=== PATIENT | female | born 1955 | race American Indian/Alaskan Native ===

== ENCOUNTER 2019-06-02 00:01 | Emergency (ER) | payer OTHER, MEDICARE ==
--- NOTE | 2019-06-02 01:04 | Emergency Department Report ---
ED ENT HPI - General Chief complaint: Sore Throat Stated complaint: GLASS IN THROAT VERY LITTLE Time Seen by Provider: 06/02/19 00:50 Source: patient Mode of arrival: Ambulatory Limitations: No Limitations - History of Present Illness Initial comments: Patient is a 64-year-old female presents with sensation to state she thinks glass gotten into her throat is no swelling no stridor no losing bleeding no cough no shortness of breath no swelling resistant to by mouth intake without dysphagia, complaint: foreign body Onset/Timin -: days(s) Location: throat Severity: moderate Severity scale (0 -10): 4 Quality: other (irritation ) Consistency: constant Improves with: none Worsens with: none - Related Data Allergies Allergy/AdvReac Type Severity Reaction Status Date / Time No Known Allergies Allergy Unverified 01/14/16 07:22 ED Dental HPI - General Chief complaint: Sore Throat Stated complaint: GLASS IN THROAT VERY LITTLE Time Seen by Provider: 06/02/19 00:50 Source: patient Mode of arrival: Ambulatory Limitations: No Limitations - Related Data Allergies Allergy/AdvReac Type Severity Reaction Status Date / Time No Known Allergies Allergy Unverified 01/14/16 07:22 ED Review of Systems ROS: Stated complaint: GLASS IN THROAT VERY LITTLE Other details as noted in HPI Constitutional: denies: chills, fever Eyes: denies: eye pain, eye discharge, vision change ENT: throat pain. denies: ear pain, dental pain, hearing loss, epistaxis, congestion Respiratory: denies: cough, shortness of breath, wheezing Cardiovascular: denies: chest pain, palpitations Endocrine: no symptoms reported Gastrointestinal: denies: abdominal pain, nausea, diarrhea Genitourinary: denies: urgency, dysuria, discharge Musculoskeletal: denies: back pain, joint swelling, arthralgia Skin: denies: rash, lesions Neurological: denies: headache, weakness, paresthesias Psychiatric: denies: anxiety, depression Hematological/Lymphatic: denies: easy bleeding, easy bruising ED Past Medical Hx - Past Medical History Previous Medical History?: Yes Hx Hypertension: Yes - Surgical History Past Surgical History?: No - Social History Smoking Status: Never Smoker ED Physical Exam - General Limitations: No Limitations General appearance: alert, in no apparent distress - Head Head exam: Present: atraumatic, normocephalic - Eye Eye exam: Present: normal appearance, PERRL, EOMI Pupils: Present: normal accommodation - ENT ENT exam: Present: normal orophraynx, mucous membranes moist, TM's normal bilaterally, normal external ear exam - Expanded ENT Exam Expanded Ear exam: Present: normal external inspection Mouth exam: Present: normal external inspection Teeth exam: Present: normal inspection Throat exam: Positive: normal inspection, other (uvula midline no swelling no exudate no stridor no wheezing no cough ). Negative: tonsillar erythema, tonsillomegaly, tonsillar exudate, R peritonsillar mass, L peritonsillar mass - Neck Neck exam: Present: normal inspection, full ROM. Absent: tenderness, meningismus, lymphadenopathy, thyromegaly - Expanded Neck Exam Expanded Neck exam: Absent: tenderness, midline deformity, anterior neck swelling, thyroid mass, carotid bruit, tracheal deviation - Respiratory Respiratory exam: Present: normal lung sounds bilaterally. Absent: respiratory distress, wheezes, stridor, chest wall tenderness - Cardiovascular Cardiovascular Exam: Present: regular rate, normal rhythm, normal heart sounds. Absent: systolic murmur, diastolic murmur, rubs, gallop - GI/Abdominal GI/Abdominal exam: Present: soft, normal bowel sounds. Absent: distended, tenderness, bruit, hernia - Rectal Rectal exam: Present: deferred - External exam: Present: other (deferred ) - Extremities Exam Extremities exam: Present: normal inspection, full ROM, normal capillary refill. Absent: tenderness - Back Exam Back exam: Present: normal inspection, full ROM. Absent: tenderness, rash noted - Neurological Exam Neurological exam: Present: alert, oriented X3, CN II-XII intact, normal gait, reflexes normal - Psychiatric Psychiatric exam: Present: normal affect, normal mood - Skin Skin exam: Present: warm, dry, intact, normal color. Absent: rash ED Course Vital Signs 06/02/19 06/02/19 06/02/19 00:06 02:27 02:49 Temperature 97.8 F 98 F 98 F Pulse Rate 118 H 98 H 105 H Respiratory 16 16 16 Rate Blood Pressure 184/88 Blood Pressure 171/100 169/104 [Left] O2 Sat by Pulse 99 100 100 Oximetry ED Medical Decision Making - Radiology Data Radiology results: report reviewed, image reviewed Ordering Physician: ABDIEL CALZADA NP Date of Service: 06/02/19 Procedure(s): XR neck soft tissue Accession Number(s): [id number] cc: ABDIEL CALZADA NP Fluoro Time In Minutes: XR neck soft tissue 2 views INDICATION: Foreign body in throat. Possible inhalation of glass. COMPARISON: None available. FINDINGS: At the level of the larynx, there is a questionable foreign body measuring approximately 3 mm that is best seen on the lateral view. The aerodigestive tract otherwise appears patent and normal in caliber without deviation. No acute soft tissue or osseous abnormality is otherwise seen. IMPRESSION: Possible foreign body at the level of the larynx as above. Signer Name: Don Hodge MD Signed: 06/02/2019 1:18 AM Workstation Name: [id number] Transcribed By: RICK Dictated By: Don Hodge MD Electronically Authenticated By: Don Hodge MD Signed Date/Time: 06/02/19117 DD/ 3 TD/TT: - Medical Decision Making xray soft tissue , at level of Larynx possible foriegn body 3mm , consulted ED attending recommendation, obtain ENT Consult and transfer for specialty tx and evaluation. Consulted [facility] via transfer line ENT Dr. Abreu, recommendation transfer to [place] ED for ENT evaluation, discussed same with patient , patient agrees and verbalizes understanding with tx plan. pt will transfered to [place] ED , ED to ED for ENT consult for evaluation in ED , pt will be transfered via EMS , pt is NPO, pt is a/ox 3 with nad a this time. 0250: pt for transfer at this time via EMS, pt is currently a/o x 3 with nad, pt verbalizes agreement and understanding of tx plan, including transport to [facility] Emergency Department and ENT consult and evaluation for foreign body throat. pt transfered in stable condition at this time. Critical care attestation.: If time is entered above; I have spent that time in minutes in the direct care o f this critically ill patient, excluding procedure time. ED Disposition Clinical Impression: Foreign body in throat Qualifiers: Encounter type: initial encounter Qualified Code(s): T17.208A - Unspecified foreign body in pharynx causing other injury, initial encounter Disposition: DC/TX-70 ANOTHER TYPE HLTHCARE Is pt being admited?: No Does the pt Need Aspirin: No Condition: Stable Time of Disposition: 02:53
--- NOTE | 2019-06-02 01:23 | XRay Report ---
XR neck soft tissue 2 views INDICATION: Foreign body in throat. Possible inhalation of glass. COMPARISON: None available. FINDINGS: At the level of the larynx, there is a questionable foreign body measuring approximately 3 mm that is best seen on the lateral view. The aerodigestive tract otherwise appears patent and normal in calibe r without deviation. No acute soft tissue or osseous abnormality is otherwise seen. IMPRESSION: Possible foreign body at the level of the larynx as above. Signer Name: Don Hodge MD Signed: 06/02/2019 1:18 AM Workstation Name: [email or web address]
[2019-06-02 02:49] VITALS: BP 169/104
== END 2019-06-02 02:50 | disposition other institution (70) ==
LOC: ED 00:01
DX: T17.298A Other foreign object in pharynx causing other injury, initial encounter (principal); I10 Essential (primary) hypertension; W45.8XXA Other foreign body or object entering through skin, initial encounter; Y93.89 Activity, other specified; Y92.89 Other specified places as the place of occurrence of the external cause; Y99.8 Other external cause status
CPT/HCPCS: 70360

== ENCOUNTER 2021-02-06 09:52 | Inpatient (IN) | payer MEDICARE, OTHER ==
--- NOTE | 2021-02-06 10:51 | XRay Report ---
CHEST 2 VIEWS INDICATION: chest pain. COMPARISON: None FINDINGS: Support devices: None. Heart: Borderline to mild cardiomegaly is suspected. Lungs/pleura: Small to medium bilateral subpulmonic pleural effusions are identified with compressive atelectasis at the lung bases. The upper lung zones are clear. No pneumothorax. Additional findings: None. IMPRESSION: Findings suggestive of mild CHF or volume overload. Signer Name: Soren Lim Jr, MD Signed: 02/06/2021 10:46 AM Workstation Name: [id number]
[2021-02-06 11:23] LABS: Bilirubin,Urine NEG (Negative); Blood,Urine SM (Negative); Color,Urine Colorless (Yellow); Protein,Urine <15 mg/dL mg/dL (Negative); Urobilinogen,Urine < 2.0 mg/dL (<2.0); WBC,Urine < 1.0 /HPF (0.0-6.0)
[2021-02-06 13:17] LABS: Basophils # (Auto) 0.1 K/mm3 (0.0-0.1); Basophils % (Auto) 0.8 % (0.0-1.8); Eosinophils # (Auto) 0.1 K/mm3 (0.0-0.4); Eosinophils % (Auto) 0.8 % (0.0-4.3); Hematocrit 40.8 % (30.3-42.9); Hemoglobin 13.8 gm/dl (10.1-14.3); Lymphocytes # (Auto) 2.3 K/mm3 (1.2-5.4); Lymphocytes % (Auto) 34.1 % (13.4-35.0); Mean Corpuscular HGB Conc 34 % (30-34); Mean Corpuscular Volume 88 fl (79-97); Monocytes # (Auto) 0.5 K/mm3 (0.0-0.8); Monocytes % (Auto) 6.9 % (0.0-7.3); Platelet Count 177 K/mm3 (140-440); Red Blood Count 4.64 M/mm3 (3.65-5.03); Red Cell Distribution Width 15.1 % (13.2-15.2)
[2021-02-06] MEDS ORDERED: FUROSEMIDE 40 MG/4 ML INJ IV ONE (13:17)
[2021-02-06] MEDS ORDERED: METOPROLOL TARTRATE 5 MG/5 ML INJ IV ONE (13:17)
[2021-02-06] MEDS ORDERED: NITROGLYCERIN 2% OINT 1 GM TP ONE (13:18)
[2021-02-06] MEDS ORDERED: ASPIRIN 325 MG TAB PO ONE (13:18)
--- NOTE | 2021-02-06 13:25 | Emergency Department Report ---
HPI - General Chief Complaint: Abdominal Pain Time Seen by Provider: 02/06/21 13:03 - HPI HPI: Room 3 The patient is a 66-year-old female present with chief complaint of chest tightness and edema. Patient states for the past month she has noticed abdom inal bloating bilateral lower extremity edema and epigastric/chest tightness with exertion. Patient admits to shortness of breath and dyspnea on exertion. The patient states when she stops exerting herself and relaxes the symptoms tend to subside. Patient denies nausea/vomiting or diaphoresis. Patient denies history of fever. Patient states she has been compliant with her Lasix and states her physician increased her dose from 40 mg daily to 40 mg twice daily approximately 1.5 weeks ago. Patient states she is never had a stress test or cardiac catheterization. Patient has stable two-pillow orthopnea ED Past Medical Hx - Past Medical History Previous Medical History?: Yes Hx Hypertension: Yes Hx Congestive Heart Failure: Yes - Surgical History Additional Surgical History: Hysterectomy - Family History Family history: no significant - Social History Smoking Status: Never Smoker Substance Use Type: None (Denies illicit drug use) ED Review of Systems ROS: Stated complaint: ABD PAIN/TIGHTNESS Other details as noted in HPI Constitutional: denies: diaphoresis Eyes: denies: eye pain Respiratory: shortness of breath Cardiovascular: chest pain Endocrine: no symptoms reported Gastrointestinal: abdominal pain. denies: nausea, vomiting Musculoskeletal: denies: back pain Neurological: denies: headache Physical Exam - Physical Exam Vital Signs: Vital Signs 02/06/21 10:11 Temperature 97.7 F Pulse Rate 120 H Respiratory 16 Rate Blood Pressure 137/94 [Right] O2 Sat by Pulse 94 Oximetry Physical Exam: GENERAL: The patient is well-developed well-nourished female lying on stretcher not appearing to be in acute distress. [] HEENT: Normocephalic. Atraumatic. Extraocular motions are intact. Patient has moist mucous membranes. NECK: Supple. Trachea midline CHEST/LUNGS: Breath sounds diminished at the bases bilaterally HEART/CARDIOVASCULAR: Regular. There is tachycardia. There is no gallop rub or murmur. ABDOMEN: Abdomen is soft, with mild midepigastric discomfort to palpation. No rebound or guarding. Patient has normal bowel sounds. There is no abdominal distention. SKIN: There is no rash. There is 2-3+ bilateral lower extremity pitting edema. There is no diaphoresis. NEURO: The patient is awake, alert, and oriented. The patient is cooperative. The patient has no focal neurologic deficits. The patient has normal speech MUSCULOSKELETAL: There is no evidence of acute injury. ED Course Vital Signs 02/06/21 10:11 Temperature 97.7 F Pulse Rate 120 H Respiratory 16 Rate Blood Pressure 137/94 [Right] O2 Sat by Pulse 94 Oximetry ED Medical Decision Making - Lab Data Result diagrams: 02/06/21 12:50 Laboratory Tests 02/06/21 02/06/21 02/06/21 12:50 12:50 12:50 WBC 6.7 RBC 4.64 Hgb 13.8 Hct 40.8 MCV 88 MCH 30 MCHC 34 RDW 15.1 Plt Count 177 Lymph % (Auto) 34.1 Edgar % (Auto) 6.9 Eos % (Auto) 0.8 Baso % (Auto) 0.8 Lymph # (Auto) 2.3 Edgar # (Auto) 0.5 Eos # (Auto) 0.1 Baso # (Auto) 0.1 Seg Neutrophils % 57.4 Seg Neutrophils # 3.8 Sodium 135 L Potassium 3.3 L Chloride 99.7 Carbon Dioxide 27 Anion Gap 12 BUN 10 Creatinine 1.0 Estimated GFR > 60 BUN/Creatinine Ratio 10 Glucose 102 H Calcium 9.2 Total Bilirubin 1.00 AST 31 ALT 22 Alkaline Phosphatase 54 Troponin T < 0.010 Total Protein 6.6 Albumin 3.5 L Albumin/Globulin Ratio 1.1 Lipase 29 Urine Color Urine Turbidity Urine pH Ur Specific Lane Urine Protein Urine Glucose (UA) Urine Ketones Urine Blood Urine Nitrite Urine Bilirubin Urine Urobilinogen Ur Leukocyte Esterase Urine WBC (Auto) Urine RBC (Auto) 02/06/21 Unknown WBC RBC Hgb Hct MCV MCH MCHC RDW Plt Count Lymph % (Auto) Edgar % (Auto) Eos % (Auto) Baso % (Auto) Lymph # (Auto) Edgar # (Auto) Eos # (Auto) Baso # (Auto) Seg Neutrophils % Seg Neutrophils # Sodium Potassium Chloride Carbon Dioxide Anion Gap BUN Creatinine Estimated GFR BUN/Creatinine Ratio Glucose Calcium Total Bilirubin AST ALT Alkaline Phosphatase Troponin T Total Protein Albumin Albumin/Globulin Ratio Lipase Urine Color Colorless Urine Turbidity Clear Urine pH 6.[address] 1.002 L Urine Protein <15 mg/dl Urine Glucose (UA) Neg Urine Ketones Neg Urine Blood Sm Urine Nitrite Neg Urine Bilirubin Neg Urine Urobilinogen < 2.0 Ur Leukocyte Esterase Neg Urine WBC (Auto) < 1.0 Urine RBC (Auto) 1.0 - EKG Data -: EKG Interpreted by Me EKG shows normal: sinus rhythm Rate: normal - EKG Data When compared to previous EKG there are: previous EKG unavailable Interpretation: other (Left bundle branch block) - Radiology Data Radiology results: report reviewed (Chest x-ray), image reviewed (Chest x-ray) interpreted by me: Chest [id number] pleural effusions. No definite focal infiltrates. No pneumothorax [facility] [address] [place] [address] XRay Report Signed Patient: NADEEM PATTERSON MR#: [id number] : 1955 Acct:[id number] Age/Sex: 66 / F ADM Date: 02/06/21 Loc: ED Attending Dr: Ordering Physician: INLAM DAVID Date of Service: 02/06/21 Procedure(s): XR chest routine 2V Accession Number(s): [id number] cc: NILAM DAVID Fluoro Time In Minutes: CHEST 2 VIEWS INDICATION: chest pain. COMPARISON: None FINDINGS: Support devices: None. Heart: Borderline to mild cardiomegaly is suspected. Lungs/pleura: Small to medium bilateral subpulmonic pleural effusions are identified with compressive atelectasis at the lung bases. The upper lung zones are clear. No pneumothorax. Additional findings: None. IMPRESSION: Findings suggestive of mild CHF or volume overload. Signer Name: Soren Lim Jr, MD Signed: 02/06/2021 10:46 AM Workstation Name: [id number] Transcribed By: TTR Dictated By: SOREN LIM JR, MD Electronically Authenticated By: SOREN LIM JR, MD Signed Date/Time: 02/06/21 1046 DD/ 1046 TD/TT: - Differential Diagnosis CHF exacerbation, ACS, pancreatitis, pulmonary edema Critical care attestation.: If time is entered above; I have spent that time in minutes in the direct care of this critically ill patient, excluding procedure time. ED Disposition Clinical Impression: CHF exacerbation, Peripheral edema, Chest tightness Disposition: OP ADMIT IP TO THIS HOSP Is pt being admited?: Yes Does the pt Need Aspirin: Yes Condition: Fair Instructions: Abdominal Pain (ED) Time of Disposition: 13:54 (Hospitalist paged (Dr. Stroud)) Heart Score - HEART Score History: Moderately suspicious EKG: Non-specific Age: > 65 Risk factors: 1-2 risk factors Troponin: < normal limit HEART Score: 5
[2021-02-06 13:37] LABS: Alanine Aminotransferase 22 units/L (7-56); Albumin 3.5 g/dL (3.9-5); BUN/Creatinine Ratio 10; Blood Urea Nitrogen 10 mg/dL (7-17); Calcium 9.2 mg/dL (8.4-10.2); Hemolysis Index 1
[2021-02-06] MEDS ORDERED: ALBUTEROL 2.5 MG/3 ML NEBU IH ONE (13:43)
[2021-02-06] MEDS ORDERED: IPRATROPIUM 0.02% NEBU 2.5 ML IH ONE (13:43)
--- NOTE | 2021-02-06 14:15 | History and Physical Report ---
History of Present Illness Chief complaint: My chest feels tight and I am swollen History of present illness: 66 YO Female with HTN, CHF presents to ED for evaluation. Patient reports "my chest feels tight and my legs are swollen". Patient states that she had experienced chest discomfort, decreased exercise tolerance, dyspnea on exertion, dyspnea at rest, orthopnea, as well as paroxysmal nocturnal dyspnea over the past 1 week with worsening symptoms over the past 3 days. Patient transported to [facility] via private vehicle for further care and evaluation of the aforementioned symptoms. Patient seen and evaluated in the emergency department. All lab and imaging studies reviewed. Patient found to have clinical symptoms consistent with CHF decompensation. Patient initiated on CHF protocol. Cardiology team consulted in ED. Patient denies fever, chills, chest pain, palpitations, productive cough, skin rash, recent ill contact, or known exposure to COVID-19. No prior admission for review. No medication listed at time of admission for reconciliation. Advanced care planning conducted in ED. Past History Past Medical History: heart failure, hypertension Past Surgical History: hysterectomy Social history: . denies: smoking, alcohol abuse, prescription drug abuse Family history: hypertension Medications and Allergies Allergies Allergy/AdvReac Type Severity Reaction Status Date / Time No Known Allergies Allergy Unverified 01/14/16 07:22 Review of Systems Constitutional: no weight loss, no fever, no sweats, no night sweats Ears, nose, mouth and throat: no decreased hearing, no nose pain, no nasal congestion, no nasal discharge, no sinus pressure, no sinus pain Cardiovascular: orthopnea, shortness of breath, dyspnea on exertion, paroxysmal nocturnal dyspnea, leg edema, decreased exercise tolerance, no chest pain, no rapid/irregular heart beat, no lightheadedness Respiratory: no cough, no cough with sputum, no excessive sputum, no hemoptysis Gastrointestinal: no nausea, no vomiting, no diarrhea, no constipation Genitourinary Female: no pelvic pain, no flank pain, no dysuria, no urinary frequency, no urgency Rectal: no pain, no incontinence, no bleeding Musculoskeletal: no neck stiffness, no neck pain, no shooting arm pain, no arm numbness/tingling, no low back pain, no shooting leg pain, no redness of joints Integumentary: no rash, no pruritis, no redness, no sores, no wounds Neurological: no transient paralysis, no paralysis, no parathesias, no numbness, no tingling Psychiatric: no anxiety, no memory loss, no change in sleep habits, no sleep disturbances, no insomnia, no change in appetite, no change in libido Endocrine: no cold intolerance, no heat intolerance, no polydipsia, no nocturia Hematologic/Lymphatic: no easy bruising, no easy bleeding Allergic/Immunologic: no urticaria, no allergic rhinitis Exam - Constitutional Vitals: Temp Pulse Resp BP Pulse Ox 97.7 F 98 H 18 142/93 98 02/06/21 10:11 02/06/21 14:00 02/06/21 14:00 02/06/21 14:00 02/06/21 14:00 General appearance: Present: mild distress - EENT Eyes: Present: PERRL ENT: hearing intact, clear oral mucosa - Neck Neck: Present: supple, normal ROM - Respiratory Respiratory effort: normal Respiratory: bilateral: rales - Cardiovascular Heart Sounds: Present: S1 & S2. Absent: rub, click - Extremities Extremities: pulses symmetrical, No edema Peripheral Pulses: within normal limits - Abdominal General gastrointestinal: Present: soft, non-tender, non-distended, normal bowel sounds Female genitourinary: Present: normal - Integumentary Integumentary: Present: clear, warm, dry - Musculoskeletal Musculoskeletal: gait normal, strength equal bilaterally - Psychiatric Psychiatric: appropriate mood/affect, intact judgment & insight - Neurologic Neurologic: CNII-XII intact, moves all extremities HEART Score - HEART Score EKG: Non-specific Age: > 65 Risk factors: 1-2 risk factors Troponin: Troponin T < 0.010 ng/mL (0.00-0.029) 02/06/21 12:50 Troponin: < normal limit Results - Labs CBC & Chem 7: 02/06/21 12:50 02/06/21 12:50 Labs: Abnormal lab results 02/06/21 02/06/21 Range/Units 12:50 Unknown Sodium 135 L (137-145) mmol/L Potassium 3.3 L (3.6-5.0) mmol/L Glucose 102 H (65-100) mg/dL Albumin 3.5 L (3.9-5) g/dL Ur Specific [place] 1.002 L (1.003-1.030) Assessment and Plan - Patient Problems (1) CHF exacerbation Current Visit: Yes Status: Suspected Qualifiers: Heart failure type: systolic Qualified Code(s): I50.23 - Acute on chronic systolic (congestive) heart failure Plan to address problem: Strict I's/O, monitor urine output every shift, afterload reduction, cardiology team consulted, echocardiogram ordered and is pending at time of admission, thyroid panel, magnesium level. (2) Hypertension Current Visit: Yes Status: Acute Qualifiers: Hypertension type: essential hypertension Qualified Code(s): I10 - E ssential (primary) hypertension Plan to address problem: Monitor blood pressure every shift, continue medical management (3) DVT prophylaxis Current Visit: Yes Status: Acute Plan to address problem: SCD to bilateral lower extremities while in bed, patient is ambulatory. (4) Advance care planning Current Visit: Yes Status: Acute Plan to address problem: Disease education conducted, care plan discussed, prognosis discussed, diagnosis discussed, patient is full code, patient knowledges understanding agreement with care plan, +30 minutes.
[2021-02-06] MEDS ORDERED: ALBUTEROL 2.5 MG/3 ML NEBU IH PRN (15:03)
[2021-02-06] MEDS ORDERED: ONDANSETRON 4 MG/2 ML INJ IV PRN (15:03)
[2021-02-06] MEDS ORDERED: ACETAMINOPHEN 325 MG TAB PO PRN (15:03)
[2021-02-06 15:33] LABS: Free T4 (Free Thyroxine) 1.32 ng/dL (0.76-1.46)
[2021-02-06] MEDS: FUROSEMIDE 20 MG/2 ML INJ IV SCH (22:30)
[2021-02-07] MEDS: FUROSEMIDE 20 MG/2 ML INJ IV SCH ×2 (05:26→18:34)
[2021-02-07 05:42] LABS: BUN/Creatinine Ratio 11; Blood Urea Nitrogen 10 mg/dL (7-17); Calcium 8.3 mg/dL (8.4-10.2); Hemolysis Index 16
--- NOTE | 2021-02-07 12:07 | Consultation ---
History of Present Illness Consult date: 02/07/21 Requesting physician: KIKO MCCARTHY Consult reason: congestive heart failure History of present illness: This patient is a 66 year old female with a significant hx of HTN, CMP. SHe is previously unknown to our practice. She is a somewhat poor historian, but states she is followed by cardiology with "[facility] in [place]", but does not know which provider. She presents to [facility] with a complaint of ABD pain x several months. She describes pain as a feeling of bloating for several hours after eating or drinking. Cardiology is consulted for A/C HFrEF. Her BNP is noted to be elevated on admission. She denies any CP, AMELIA, weakness, dizziness, N/V/D, changes in bowel habits, or recent illness. She has been told she has a weak heart in the past, but does not know any details. She denies any hx of Stroke, AMI, Blood clots in the lungs or legs. She denies any hx of liver or kidney problems. No drug or alcohol use. Her only surgical hx is hysterectomy. On exam she is comfortable lying supine, denies any CP or SOB, ABD is soft, non-tender and there is minimal/trace BLE edema. CXR (02/06/21) Reviewed: Tele reviewed: ST 108. Episode of 3 beat Vtach overnight. She denies any previous ischemic eval with her staff interpreter, but has had an echocardiogram in the past. Records have been requested. Past History Past Medical History: heart failure, hypertension Past Surgical History: hysterectomy Social history: . denies: smoking, alcohol abuse, prescription drug abuse Family history: hypertension Medications and Allergies Allergies Allergy/AdvReac Type Severity Reaction Status Date / Time No Known Allergies Allergy Unverified 01/14/16 07:22 Home Medications Medication Instructions Recorded Confirmed Last Taken Type Aspirin [Adult Aspirin] 81 mg PO DAILY 02/06/21 02/06/21 Unknown History Furosemide [Lasix TAB] 40 mg PO BID 02/06/21 02/06/21 Unknown History Losartan [Cozaar] 1 tab PO DAILY 02/06/21 02/06/21 Unknown History carvediloL [Coreg] 6.25 mg PO BID 02/06/21 02/06/21 Unknown History Active Meds: Active Medications Acetaminophen (Acetaminophen 325 Mg Tab) 650 mg PO Q4H PRN PRN Reason: Pain MILD(1-3)/Fever >100.5/BAXTER Albuterol (Albuterol 2.5 Mg/3 Ml Nebu) 2.5 mg IH Q4HRT PRN PRN Reason: Shortness Of Breath Aspirin (Aspirin Ec 81 Mg Tab) 81 mg PO DAILY [facility] Carvedilol (Carvedilol 6.25 Mg Tab) 3.125 mg PO BID [facility] Furosemide (Furosemide 20 Mg/2 Ml Inj) 20 mg IV 0600,1800 [facility] Last Admin: 02/07/21 05:26 Dose: 20 mg Documented by: Ondansetron HCl (Ondansetron 4 Mg/2 Ml Inj) 4 mg IV Q8H PRN PRN Reason: Nausea And Vomiting Sodium Chloride (Sodium Chloride 0.9% 10 Ml Flush Syringe) 10 ml IV BID [facility] Last Admin: 02/06/21 22:30 Dose: 10 ml Documented by: Sodium Chloride (Sodium Chloride 0.9% 10 Ml Flush Syringe) 10 ml IV PRN PRN PRN Reason: LINE FLUSH Last Admin: 02/07/21 05:27 Dose: 10 ml Documented by: Review of Systems Constitutional: no weight loss, no weight gain, no fever, no chills Ears, nose, mouth and throat: no ear pain, no ear discharge, no nasal congestion, no nasal discharge, no sinus pressure Cardiovascular: edema, no chest pain, no orthopnea, no palpitations, no syncope, no lightheadedness, no shortness of breath Respiratory: no cough, no hemoptysis, no shortness of breath, no dyspnea on exertion, no sleep apnea, no home oxygen Gastrointestinal: abdominal pain, no nausea, no vomiting, no diarrhea, no constipation, no change in bowel habits Genitourinary Female: no pelvic pain, no flank pain Musculoskeletal: no neck stiffness, no neck pain, no shooting arm pain, no arm numbness/tingling, no low back pain, no shooting leg pain Integumentary: no rash, no pruritis, no redness, no sores, no wounds Neurological: no head injury, no paralysis, no weakness, no parathesias, no numbness, no tingling, no seizures, no syncope Psychiatric: no anxiety Endocrine: no cold intolerance, no heat intolerance Hematologic/Lymphatic: no easy bruising, no easy bleeding Allergic/Immunologic: no urticaria Physical Examination Last Vital Signs Temp 98.1 F 02/07/21 08:41 Pulse 104 H 02/07/21 08:41 Resp 18 02/07/21 08:41 BP 138/82 02/07/21 08:41 Pulse Ox 94 02/07/21 09:05 General appearance: no acute distress HEENT: Positive: PERRL, Normocephaly, Mucus Membranes Moist Neck: Positive: neck supple, trachea midline Cardiac: Positive: Regular Rhythm, S1/S2, Tachycardia Lungs: Positive: clear to auscultation, Normal Breath Sounds Neuro: Positive: Grossly Intact Abdomen: Positive: Soft, Active Bowel Sounds Skin: Negative: Rash, Wound Musculoskeletal: No Pain Extremities: Present: upper extr. pulses, lower extr. pulses (Trace edema), edema (Trace Edema BLE) Results 02/06/21 12:50 02/07/21 04:46 Cardiac Enzymes 02/06/21 Range/Units 12:50 AST 31 (5-40) units/L CBC 02/06/21 Range/Units 12:50 WBC 6.7 (4.5-11.0) K/mm3 RBC 4.64 (3.65-5.03) M/mm3 Hgb 13.8 (10.1-14.3) gm/dl Hct 40.8 (30.3-42.9) % Plt Count 177 (140-440) K/mm3 Lymph # (Auto) 2.3 (1.2-5.4) K/mm3 [place]vert # (Auto) 0.5 (0.0-0.8) K/mm3 Eos # (Auto) 0.1 (0.0-0.4) K/mm3 Baso # (Auto) 0.1 (0.0-0.1) K/mm3 Comprehensive Metabolic Panel 02/06/21 02/07/21 Range/Units 12:50 04:46 Sodium 135 L 142 D (137-145) mmol/L Potassium 3.3 L 3.6 (3.6-5.0) mmol/L Chloride 99.7 104.9 (98-107) mmol/L Carbon Dioxide 27 24 (22-30) mmol/L BUN 10 10 (7-17) mg/dL Creatinine 1.0 0.9 (0.6-1.2) mg/dL Glucose 102 H 94 (65-100) mg/dL Calcium 9.2 8.3 L (8.4-10.2) mg/dL AST 31 (5-40) units/L ALT 22 (7-56) units/L Alkaline Phosphatase 54 (35-129) units/L Total Protein 6.6 (6.3-8.2) g/dL Albumin 3.5 L (3.9-5) g/dL - Imaging and Cardiology Echo: report reviewed (Echo (02/06/21) reviewed: EF 15-20%. LV is mod dilated with severe global hypokinesis and mild diastolic dysfunction. RV mildly dilated. LA & RA mildly dilated. Moderate MR. ) EKG: report reviewed, image reviewed - EKG Interpretation EKG shows: tachycardia, sinus rhythm EKG interpretations - Telemetry EKG Rhythm: Sinus Tachycardia - EKG Sinus rhythms and dysrhythmias: sinus tachycardia Assessment and Plan Cardiology is consulted for a/c HFrEF. Tele reviewed: ST 108. Episode of 3 beat Vtach overnight. Echo (02/06/21) reviewed: EF 15-20%. LV is mod dilated with severe global hypokinesis and mild diastolic dysfunction. RV mildly dilated. LA & RA mildly dilated. Moderate MR. Trop is negative x1. Repeat Troponin. 12 Lead negative for STEMI. Optimize hypertensive regimen. Initiate Coreg 12.5 PO BID, resume home Losartan 50mg PO QD in setting of Cardomyopathy. Repeat BMP in AM. Agree with gentle diuresis. Will follow. This patient was seen in conjunction with Dr Yuri Swan who agrees with this assessment and plan of care. - Patient Problems (1) Acute HFrEF (heart failure with reduced ejection fraction) Current Visit: Yes Status: Acute (2) Cardiomyopathy Current Visit: Yes Status: Chronic (3) Abdominal pain Current Visit: Yes Status: Acute (4) Hypertension Current Visit: Yes Status: Chronic Qualifiers: Hypertension type: essential hypertension Qualified Code(s): I10 - Essential (primary) hypertension
[2021-02-07] MEDS: ASPIRIN EC 81 MG TAB PO SCH (12:31)
--- NOTE | 2021-02-07 16:04 | Progress Note ---
Assessment and Plan (1) acute on chronic systolic CHF exacerbation Current Visit: Yes Status: Suspected Qualifiers: Heart failure type: systolic Qualified Code(s): I50.23 - Acute on chronic systolic (congestive) heart failure Plan to address problem: Strict I's/O, monitor urine output every shift, afterload reduction, cardiology team consulted, echocardiogram ordered and showed 15 to 20% EF. Continue IV diuresis for now (2) Hypertension Current Visit: Yes Status: Acute Qualifiers: Hypertension type: essential hypertension Qualified Code(s): I10 - Essential (primary) hypertension Plan to address problem: Monitor blood pressure every shift, continue medical management (3) DVT prophylaxis Current Visit: Yes Status: Acute Plan to address problem: SCD to bilateral lower extremities while in bed, patient is ambulatory. (4) Advance care planning Current Visit: Yes Status: Acute Plan to address problem: Disease education conducted, care plan discussed, prognosis discussed, diagnosis discussed, patient is full code, patient knowledges understanding agreement with care plan, +30 minutes. Daily clinical course: 02/07/21; patient admitted for CHF exacerbation. Continue CHF protocol with IV diuresis, daily weight, monitoring ins and O's. Continue aspirin and statin. 2D echo today showed EF 15 to 20%. Cardiology consulted and recommended to optimize medical management. Continue to follow clinically. Need inpatient care. Subjective Date of service: 02/07/21 Interval history: Patient seen and examined. Medical records and medication list reviewed. No acute event overnight noted by the RN. Patient states that her difficulty breathing much improved on resting but still feels short of breath on minimal ambulation. Patient is tolerating diet. Discussed plan of care at bedside with patient. Objective - Exam Narrative Exam: GENERAL: well-developed elderly -[place] female lying on bed appeared to be in no discomfort. HEENT: Normocephalic. Atraumatic. No conjunctival congestion or icterus. Patient has moist mucous membranes. NECK: Supple. Trachea midline. CHEST/LUNGS: Few crackles auscultated bilaterally, breathing nonlabored. No wheezes or rhonchi. HEART/CARDIOVASCULAR: Regular in rate and rhythm. S1 and S2 positive. ABDOMEN: Abdomen is soft, nontender. Patient has normal bowel sounds. SKIN: There is no rash. Warm and dry. NEURO: No focal motor deficit. Follows command. MUSCULOSKELETAL: No joint effusion or tenderness. EXTRIMITY: No edema, no cyanosis or clubbing. PSYCH: Cooperative. - Constitutional Vitals: Vital Signs - 12hr 02/07/21 02/07/21 02/07/21 04:14 08:41 09:05 Temperature 97.3 F L 98.1 F Pulse Rate 114 H 104 H Respiratory 18 18 Rate Blood Pressure 132/92 138/82 O2 Sat by Pulse 97 96 94 Oximetry 02/07/21 12:04 Temperature 97.9 F Pulse Rate 108 H Respiratory 18 Rate Blood Pressure 138/94 O2 Sat by Pulse 98 Oximetry - Labs CBC & Chem 7: 02/06/21 12:50 02/08/21 04:23 Labs: Abnormal lab results 02/06/21 02/07/21 Range/Units 14:44 04:46 Calcium 8.3 L (8.4-10.2) mg/dL NT-Pro-B Natriuret Pep 4639 H (0-900) pg/mL HEART Score - HEART Score EKG: Non-specific Age: > 65 Risk factors: 1-2 risk factors Troponin: Troponin T < 0.010 ng/mL (0.00-0.029) 02/06/21 12:50 Troponin: < normal limit
[2021-02-07] MEDS: carvediloL 12.5 MG TAB PO SCH (21:39)
[2021-02-07] MEDS ORDERED: carvediloL 6.25 MG TAB PO SCH ×2 (22:00)
[2021-02-08 06:04] LABS: BUN/Creatinine Ratio 9; Blood Urea Nitrogen 9 mg/dL (7-17); Calcium 7.7 mg/dL (8.4-10.2); Hemolysis Index 0
[2021-02-08] MEDS: FUROSEMIDE 20 MG/2 ML INJ IV SCH (06:40)
[2021-02-08] MEDS ORDERED: POTASSIUM CHLORIDE ER 20 MEQ TAB PO ONE (07:00)
[2021-02-08] MEDS ORDERED: POTASSIUM CHLORIDE 10 MEQ 10 MEQ/100 ML BAG IV ONE (07:29)
[2021-02-08] MEDS: carvediloL 12.5 MG TAB PO SCH ×2 (10:24→21:21)
[2021-02-08] MEDS: ASPIRIN EC 81 MG TAB PO SCH (10:24)
[2021-02-08] MEDS: LOSARTAN 50 MG TAB PO SCH (10:24)
--- NOTE | 2021-02-08 10:39 | Electrocardiograph Report ---
[facility] Test Date: 2021-02-06 Test Time: 10:18:26 Pat Name: NADEEM PATTERSON Department: Room: A460 1 Gender: F Eyeletter: : 1955 Requested By: NALLELY QUILES Order Number: [id number] Reading MD: Ganga Burnett Measurements Intervals [place] Rate: 119 P: 82 WI: 131 QRS: 74 QRSD: 120 T: 18 QT: 349 QTc: 492 Interpretive Statements Sinus tachycardia Ventricular premature complex Probable left atrial enlargement LEFT BUNDLE BRANCH BLOCK No previous ECG available for comparison Electronically Signed On 02-08-2021 10:39:15 EDT by Ganga Burnett
--- NOTE | 2021-02-08 10:51 | Progress Note ---
Assessment and Plan Cardiology is consulted for a/c HFrEF. Pt presents with a C/C of Abd pain and edema she describes as bloating and pressure after eating, she has no abd discomfort when she restricts herself to small boluses of food and fluids. Pt noted to have elevated BNP on admission. Echo (02/06/21) reviewed: EF 15-20%. LV is mod dilated with severe global hypokinesis and mild diastolic dysfunction. RV mildly dilated. LA & RA mildly dilated. Moderate MR. Pt has hx of HF which she reports as rEF but is unsure of her EF%. Followed by [facility] in [place]. Records requested. Pt denies any prior ischemic evaluation. Coronary angiography recommended to rule out ICMP. Indications, potential risk, benefits reviewed with pt and she is agreeable to proceed with [facility] on thursday. Continue BB and Losartan. Pt has reported hx of MARGARITA intolerance with cough. Continue IV diuretics for at least another 24 hours. Tele reviewed SR 91. Episode of 8 beat polymorphic Vtach noted overnight. Trop is negative x1. Repeat Troponin. 12 Lead negative for STEMI. Cardiac Defibrillator is indicated in setting of severe cardiomyopathy and nonsustained VT. Lifevest discussed with pt who is agreeable to lifevest placement at this time and will plan to evaluate for AICD candidacy as outpatient. Lifevest ordered. Will follow. This patient was seen in conjunction with Dr Yuri Swan who agrees with this assessment and plan of care. - Patient Problems (1) Acute HFrEF (heart failure with reduced ejection fraction) Current Visit: Yes Status: Acute Pt has hx of HF. Followed by [facility] in [place]. Records requested. Pt appears to be nearing euvolemia. Discontinue Lasix 20mg IV BID, resume home medication Lasix 40mg PO QD. Repeat BMP in am. (2) Cardiomyopathy Current Visit: Yes Status: Chronic Pt does not have PPM. Pt is on BB, ARB. Hx ACEI Intolerance: Cough Plan on [facility] on Thursday to further classify. LifeVest is ordered in setting of Cardiomyopathy EF15-20% and paroxysmal ventricular arrhythmia. (3) Abdominal pain Current Visit: Yes Status: Acute Per primary. (4) Hypertension Current Visit: Yes Status: Chronic Qualifiers: Hypertension type: essential hypertension Qualified Code(s): I10 - Essential (primary) hypertension Pt is normotensive on current hypertensive regimen. (5) MARGARITA Inhibitor Intolerance Current Visit: Yes Status: Acute Pt developed cough with ACEI. Currently treated with ARB. - Patient Problems (1) Acute HFrEF (heart failure with reduced ejection fraction) Current Visit: Yes Status: Acute (2) Cardiomyopathy Current Visit: Yes Status: Chronic (3) Abdominal pain Current Visit: Yes Status: Acute (4) Hypertension Current Visit: Yes Status: Chronic Qualifiers: Hypertension type: essential hypertension Qualified Code(s): I10 - Essential (primary) hypertension (5) MARGARITA-inhibitor cough Current Visit: Yes Status: Chronic (6) Left bundle branch block (LBBB) Current Visit: Yes Status: Acute Subjective Date of service: 02/08/21 Principal diagnosis: HFrEF Interval history: Pt is resting in bed comfortably. Tele reviewed SR 91. Episode of 8 beat polymorphic Vtach noted overnight. Objective Last Vital Signs Temp 97.5 F L 02/08/21 08:23 Pulse 104 H 02/08/21 08:23 Resp 16 02/08/21 08:23 BP 125/76 02/08/21 08:23 Pulse Ox 95 02/08/21 08:23 - Physical Examination HEENT: Positive: PERRL, Normocephaly, Mucus Membranes Moist Neck: Positive: neck supple, trachea midline Cardiac: Positive: Reg Rate and Rhythm, S1/S2 Lungs: Positive: clear to auscultation, Normal Breath Sounds Neuro: Positive: Grossly Intact Abdomen: Positive: Soft, Active Bowel Sounds Skin: Negative: Rash, Wound Musculoskeletal: No Pain Extremities: Present: upper extr. pulses, lower extr. pulses (Trace edema), edema (Trace Edema BLE) - Labs and Meds Comprehensive Metabolic Panel 02/08/21 Range/Units 04:23 Sodium 141 (137-145) mmol/L Potassium 3.1 L (3.6-5.0) mmol/L Chloride 104.9 (98-107) mmol/L Carbon Dioxide 28 (22-30) mmol/L BUN 9 (7-17) mg/dL Creatinine 1.0 (0.6-1.2) mg/dL Glucose 83 (65-100) mg/dL Calcium 7.7 L (8.4-10.2) mg/dL - Imaging and Cardiology EKG: report reviewed, image reviewed Echo: report reviewed (Echo (02/06/21) reviewed: EF 15-20%. LV is mod dilated with severe global hypokinesis and mild diastolic dysfunction. RV mildly dilated. LA & RA mildly dilated. Moderate MR. ) - Telemetry EKG Rhythm: Sinus Rhythm - EKG Sinus rhythms and dysrhythmias: sinus tachycardia
[2021-02-08] MEDS ORDERED: ASPIRIN EC 325 MG TAB PO ONE (11:41)
--- NOTE | 2021-02-08 12:59 | Progress Note ---
Assessment and Plan -- Acute on chronic systolic CHF exacerbation Current Visit: Yes Status: Suspected Qualifiers: Heart failure type: systolic Qualified Code(s): I50.23 - Acute on chronic systolic (congestive) heart failure Plan to address problem: Strict I's/O, monitor urine output every shift, afterload reduction, cardiology team consulted, echocardiogram ordered and showed 15 to 20% EF. Continue IV diuresis for now -- Hypertension Current Visit: Yes Status: Acute Qualifiers: Hypertension type: essential hypertension Qualified Code(s): I10 - Essential (primary) hypertension Plan to address problem: Monitor blood pressure every shift, continue medical management --DVT prophylaxis Current Visit: Yes Status: Acute Plan to address problem: SCD to bilateral lower extremities while in bed, patient is ambulatory. -- Full code status Daily clinical course: 02/07/21; patient admitted for CHF exacerbation. Continue CHF protocol with IV diuresis, daily weight, monitoring ins and O's. Continue aspirin and statin. 2D echo today showed EF 15 to 20%. Cardiology consulted and recommended to optimize medical management. Continue to follow clinically. Need inpatient care. 02/08/21: Patient becomes hypoxic on ambulation, continue IV diuresis. Monitor ins and O's. Plan to have stress test/cardiac cath on Thursday. Continue supportive care Subjective Date of service: 02/08/21 Principal diagnosis: HFrEF Interval history: Patient seen and examined. Medical records and medication list reviewed. No acute event overnight noted by the RN. Patient states that her difficulty breathing much improved on resting but still feeling hypoxic on ambulation Patient is tolerating diet. Discussed plan of care at bedside with patient. Objective - Exam Narrative Exam: GENERAL: well-developed elderly -[place] female lying on bed appeared to be in no discomfort. HEENT: Normocephalic. Atraumatic. No conjunctival congestion or icterus. Patient has moist mucous membranes. NECK: Supple. Trachea midline. CHEST/LUNGS: Few crackles auscultated bilaterally, breathing nonlabored. No wheezes or rhonchi. HEART/CARDIOVASCULAR: Regular in rate and rhythm. S1 and S2 positive. ABDOMEN: Abdomen is soft, nontender. Patient has normal bowel sounds. SKIN: There is no rash. Warm and dry. NEURO: No focal motor deficit. Follows command. MUSCULOSKELETAL: No joint effusion or tenderness. EXTRIMITY: No edema, no cyanosis or clubbing. PSYCH: Cooperative. - Constitutional Vitals: Vital Signs - 12hr 02/08/21 02/08/21 02/08/21 01:04 04:05 08:23 Temperature 97.8 F 98.0 F 97.5 F L Pulse Rate 88 87 104 H Respiratory 17 18 16 Rate Blood Pressure 110/65 113/69 125/76 O2 Sat by Pulse 94 93 95 Oximetry - Labs CBC & Chem 7: 02/06/21 12:50 02/09/21 05:42 Labs: Abnormal lab results 02/08/21 Range/Units 04:23 Potassium 3.1 L (3.6-5.0) mmol/L Calcium 7.7 L (8.4-10.2) mg/dL HEART Score - HEART Score EKG: Non-specific Age: > 65 Risk factors: 1-2 risk factors Troponin: Troponin T < 0.010 ng/mL (0.00-0.029) 02/06/21 12:50 Troponin: < normal limit
[2021-02-08] MEDS: POTASSIUM CHLORIDE ER 20 MEQ TAB PO SCH (13:47)
[2021-02-09] MEDS ORDERED: FUROSEMIDE 40 MG TAB PO SCH ×2 (06:00→10:00)
[2021-02-09 06:51] LABS: BUN/Creatinine Ratio 12; Blood Urea Nitrogen 11 mg/dL (7-17); Calcium 8.2 mg/dL (8.4-10.2); Hemolysis Index 18
[2021-02-09] MEDS: FUROSEMIDE 20 MG/2 ML INJ IV SCH (06:56)
[2021-02-09] MEDS: ASPIRIN EC 81 MG TAB PO SCH (11:44)
[2021-02-09] MEDS: POTASSIUM CHLORIDE ER 20 MEQ TAB PO SCH (11:44)
[2021-02-09] MEDS: carvediloL 12.5 MG TAB PO SCH ×2 (11:44→21:36)
[2021-02-09] MEDS: LOSARTAN 50 MG TAB PO SCH (11:44)
--- NOTE | 2021-02-09 17:49 | Progress Note ---
Assessment and Plan Plan for [facility] Thursday AM. NPO after midnight Thursday. Awaiting LifeVest - order placed. Plan to further assess AICD candidacy as an outpatient. Continue daily IV Lasix with strict I/Os. Closely monitor renal indices and electrolytes. Continue BB and ARB. Pt seen in conjunction with Dr. Mazariegos, who agrees with the assessment and plan of care. - Patient Problems (1) Acute on chronic HFrEF (heart failure with reduced ejection fraction) Current Visit: Yes Status: Acute (2) Cardiomyopathy Current Visit: Yes Status: Chronic Plan to address problem: EF 10-15%, etiology unclear (3) Left bundle branch block (LBBB) Current Visit: Yes Status: Acute (4) NSVT (nonsustained ventricular tachycardia) Current Visit: Yes Status: Acute (5) Hypertension Current Visit: Yes Status: Chronic Qualifiers: Hypertension type: essential hypertension Qualified Code(s): I10 - Essential (primary) hypertension (6) Abdominal pain Current Visit: Yes Status: Resolved Subjective Date of service: 02/09/21 Principal diagnosis: A/C HFrEF, CMP (EF 10-15%) Interval history: Resting comfortably in bed. States she is feeling fine. No new complaints. No UOP recorded/24 hrs; however, pt reports good output. Tele reviewed - SR 80s, intermittent NSVT noted. Objective Last Vital Signs Temp 97.8 F 02/09/21 15:13 Pulse 83 02/09/21 15:13 Resp 18 02/09/21 15:13 BP 101/57 02/09/21 15:13 Pulse Ox 98 02/09/21 15:13 - Physical Examination General: No Apparent Distress HEENT: Positive: EOMI, Normocephaly, Mucus Membranes Moist Neck: Positive: neck supple, trachea midline. Negative: JVD/HJR Cardiac: Positive: Reg Rate and Rhythm, S1/S2 Lungs: Positive: clear to auscultation Neuro: Positive: Grossly Intact Abdomen: Positive: Soft. Negative: Tender Skin: Negative: Rash Musculoskeletal: No Pain Extremities: Present: upper extr. pulses, lower extr. pulses, edema (trace BLE) - Labs and Meds Comprehensive Metabolic Panel 02/09/21 Range/Units 05:42 Sodium 141 (137-145) mmol/L Potassium 4.1 D (3.6-5.0) mmol/L Chloride 105.0 (98-107) mmol/L Carbon Dioxide 27 (22-30) mmol/L BUN 11 (7-17) mg/dL Creatinine 0.9 (0.6-1.2) mg/dL Glucose 86 (65-100) mg/dL Calcium 8.2 L (8.4-10.2) mg/dL - Imaging and Cardiology EKG: report reviewed, image reviewed Echo: report reviewed (02/06/2021: EF 15-20%; LV moderately dilated w/severe global hypokinesis and mild diastolic dysfxn; RV mildly dilated; LA & RA mildly dilated; moderate MR) Cardiac cath: pending - Telemetry EKG Rhythm: Sinus Rhythm - EKG Sinus rhythms and dysrhythmias: sinus tachycardia AV and intraventricular conduction: left bundle branch block
[2021-02-10] MEDS: FUROSEMIDE 20 MG/2 ML INJ IV SCH (05:05)
--- NOTE | 2021-02-10 08:19 | Progress Note ---
Assessment and Plan -- Acute on chronic systolic CHF exacerbation Current Visit: Yes Status: Suspected Qualifiers: Heart failure type: systolic Qualified Code(s): I50.23 - Acute on chronic systolic (congestive) heart failure Plan to address problem: Strict I's/O, monitor urine output every shift, afterload reduction, cardiology team consulted, echocardiogram ordered and showed 15 to 20% EF. Continue IV diuresis for now -- Hypertension Current Visit: Yes Status: Acute Qualifiers: Hypertension type: essential hypertension Qualified Code(s): I10 - Essential (primary) hypertension Plan to address problem: Monitor blood pressure every shift, continue medical management --DVT prophylaxis Current Visit: Yes Status: Acute Plan to address problem: SCD to bilateral lower extremities while in bed, patient is ambulatory. -- Full code status Daily clinical course: 02/07/21; patient admitted for CHF exacerbation. Continue CHF protocol with IV diuresis, daily weight, monitoring ins and O's. Continue aspirin and statin. 2D echo today showed EF 15 to 20%. Cardiology consulted and recommended to optimize medical management. Continue to follow clinically. Need inpatient care. 02/08/21: Patient becomes hypoxic on ambulation, continue IV diuresis. Monitor ins and O's. Plan to have stress test/cardiac cath on Thursday. Continue supportive care 02/09/21; cont diuresis,Monitor ins and O's. Plan to have stress test/cardiac cath on Thursday. Subjective Date of service: 02/09/21 Principal diagnosis: A/C HFrEF, CMP (EF 10-15%) Interval history: Patient seen and examined. Medical records and medication list reviewed. No acute event overnight noted by the RN. Patient states that her difficulty breathing much improved on resting and also improving on ambulation Patient is tolerating diet. Discussed plan of care at bedside with patient. Objective - Exam Narrative Exam: GENERAL: well-developed elderly -[place] female lying on bed appeared to be in no discomfort. HEENT: Normocephalic. Atraumatic. No conjunctival congestion or icterus. Patient has moist mucous membranes. NECK: Supple. Trachea midline. CHEST/LUNGS: Few crackles auscultated bilaterally, breathing nonlabored. No wheezes or rhonchi. HEART/CARDIOVASCULAR: Regular in rate and rhythm. S1 and S2 positive. ABDOMEN: Abdomen is soft, nontender. Patient has normal bowel sounds. SKIN: There is no rash. Warm and dry. NEURO: No focal motor deficit. Follows command. MUSCULOSKELETAL: No joint effusion or tenderness. EXTRIMITY: No edema, no cyanosis or clubbing. PSYCH: Cooperative. - Constitutional Vitals: Vital Signs - 12hr 02/09/21 02/09/21 02/10/21 21:36 23:38 04:50 Temperature 97.9 F 98.0 F Pulse Rate 94 H 87 89 Respiratory 18 17 Rate Blood Pressure 102/75 115/68 123/82 O2 Sat by Pulse 99 97 Oximetry - Labs CBC & Chem 7: 02/06/21 12:50 02/09/21 05:42 HEART Score - HEART Score EKG: Non-specific Age: > 65 Risk factors: 1-2 risk factors Troponin: Troponin T < 0.010 ng/mL (0.00-0.029) 02/09/21 05:42 Troponin: < normal limit
--- NOTE | 2021-02-10 08:21 | Progress Note ---
Assessment and Plan -- Acute on chronic systolic CHF exacerbation Current Visit: Yes Status: Suspected Qualifiers: Heart failure type: systolic Qualified Code(s): I50.23 - Acute on chronic systolic (congestive) heart failure Plan to address problem: Strict I's/O, monitor urine output every shift, afterload reduction, cardiology team consulted, echocardiogram ordered and showed 15 to 20% EF. Continue IV diuresis for now -- Hypertension Current Visit: Yes Status: Acute Qualifiers: Hypertension type: essential hypertension Qualified Code(s): I10 - Essential (primary) hypertension Plan to address problem: Monitor blood pressure every shift, continue medical management --DVT prophylaxis Current Visit: Yes Status: Acute Plan to address problem: SCD to bilateral lower extremities while in bed, patient is ambulatory. -- Full code status Daily clinical course: 02/07/21; patient admitted for CHF exacerbation. Continue CHF protocol with IV diuresis, daily weight, monitoring ins and O's. Continue aspirin and statin. 2D echo today showed EF 15 to 20%. Cardiology consulted and recommended to optimize medical management. Continue to follow clinically. Need inpatient care. 02/08/21: Patient becomes hypoxic on ambulation, continue IV diuresis. Monitor ins and O's. Plan to have stress test/cardiac cath on Thursday. Continue supportive care 02/09/21; cont diuresis,Monitor ins and O's. Plan to have stress test/cardiac cath on Thursday. 02/10/2021: Continue continue current management IV diuresis, plan for cardiac cath, monitor ins and O's daily weight, n.p.o. after midnight Subjective Date of service: 02/10/21 Principal diagnosis: HFrEF Interval history: Patient seen and examined. Medical records and medication list reviewed. No acute event overnight noted by the RN. Patient states that her difficulty breathing much improved on resting but still feeling hypoxic on ambulation Patient is tolerating diet. Discussed plan of care at bedside with patient. Objective - Exam Narrative Exam: GENERAL: well-developed elderly -[place] female lying on bed appeared to be in no discomfort. HEENT: Normocephalic. Atraumatic. No conjunctival congestion or icterus. Patient has moist mucous membranes. NECK: Supple. Trachea midline. CHEST/LUNGS: Few crackles auscultated bilaterally, breathing nonlabored. No wheezes or rhonchi. HEART/CARDIOVASCULAR: Regular in rate and rhythm. S1 and S2 positive. ABDOMEN: Abdomen is soft, nontender. Patient has normal bowel sounds. SKIN: There is no rash. Warm and dry. NEURO: No focal motor deficit. Follows command. MUSCULOSKELETAL: No joint effusion or tenderness. EXTRIMITY: No edema, no cyanosis or clubbing. PSYCH: Cooperative. - Constitutional Vitals: Vital Signs - 12hr 02/09/21 02/09/21 02/10/21 21:36 23:38 04:50 Temperature 97.9 F 98.0 F Pulse Rate 94 H 87 89 Respiratory 18 17 Rate Blood Pressure 102/75 115/68 123/82 O2 Sat by Pulse 99 97 Oximetry - Labs CBC & Chem 7: 02/11/21 04:27 02/11/21 04:27 HEART Score - HEART Score EKG: Non-specific Age: > 65 Risk factors: 1-2 risk factors Troponin: Troponin T < 0.010 ng/mL (0.00-0.029) 02/09/21 05:42 Troponin: < normal limit
--- NOTE | 2021-02-10 10:44 | Progress Note ---
Assessment and Plan Plan for C in AM. NPO after midnight. LifeVest in situ. Plan to further assess AICD candidacy as an outpatient. Continue daily IV Lasix for now. Closely monitor renal indices and electrolytes. Continue BB and ARB. Pt seen in conjunction with Dr. Mazariegos, who agrees with the assessment and plan of care. - Patient Problems (1) Acute on chronic HFrEF (heart failure with reduced ejection fraction) Current Visit: Yes Status: Acute (2) Cardiomyopathy Current Visit: Yes Status: Chronic Plan to address problem: EF 10-15%, etiology unclear (3) Left bundle branch block (LBBB) Current Visit: Yes Status: Acute (4) NSVT (nonsustained ventricular tachycardia) Current Visit: Yes Status: Acute (5) Hypertension Current Visit: Yes Status: Chronic Qualifiers: Hypertension type: essential hypertension Qualified Code(s): I10 - Essential (primary) hypertension (6) Abdominal pain Current Visit: Yes Status: Resolved Subjective Date of service: 02/10/21 Principal diagnosis: A/C HFrEF, CMP (EF 10-15%), NSVT Interval history: Resting comfortably in bed. States her stomach is feeling much better. No new complaints. -900mL UOP recorded/24 hrs. SR 90s on tele this AM, no events overnight. Objective Last Vital Signs Temp 97.9 F 02/10/21 08:01 Pulse 83 02/10/21 10:00 Resp 16 02/10/21 08:01 BP 113/71 02/10/21 08:01 Pulse Ox 98 02/10/21 08:01 - Physical Examination General: No Apparent Distress HEENT: Positive: EOMI, Normocephaly, Mucus Membranes Moist Neck: Positive: neck supple, trachea midline. Negative: JVD/HJR Cardiac: Positive: Reg Rate and Rhythm, S1/S2 Lungs: Positive: clear to auscultation Neuro: Positive: Grossly Intact Abdomen: Positive: Soft. Negative: Tender Skin: Negative: Rash Musculoskeletal: No Pain Extremities: Present: upper extr. pulses, lower extr. pulses. Absent: edema - Imaging and Cardiology EKG: report reviewed, image reviewed Echo: report reviewed (02/06/2021: EF 15-20%; LV moderately dilated w/severe elizabeth bal hypokinesis and mild diastolic dysfxn; RV mildly dilated; LA & RA mildly dilated; moderate MR) Cardiac cath: pending - Telemetry EKG Rhythm: Sinus Rhythm - EKG Sinus rhythms and dysrhythmias: sinus tachycardia AV and intraventricular conduction: left bundle branch block
[2021-02-10] MEDS: ASPIRIN EC 81 MG TAB PO SCH (11:15)
[2021-02-10] MEDS: LOSARTAN 50 MG TAB PO SCH (11:15)
[2021-02-10] MEDS: carvediloL 12.5 MG TAB PO SCH ×2 (11:15→22:06)
[2021-02-10] MEDS: POTASSIUM CHLORIDE ER 20 MEQ TAB PO SCH (11:15)
[2021-02-11 05:57] LABS: Basophils % (Auto) 0.6 % (0.0-1.8); Eosinophils # (Auto) 0.2 K/mm3 (0.0-0.4); Hematocrit 38.9 % (30.3-42.9); Hemoglobin 12.7 gm/dl (10.1-14.3); Lymphocytes % (Auto) 46.3 % (13.4-35.0); Mean Corpuscular HGB Conc 33 % (30-34); Mean Corpuscular Volume 89 fl (79-97); Monocytes # (Auto) 0.6 K/mm3 (0.0-0.8); Monocytes % (Auto) 9.1 % (0.0-7.3); Platelet Count 142 K/mm3 (140-440); Red Blood Count 4.36 M/mm3 (3.65-5.03)
[2021-02-11 06:00] LABS: INR 1.18 (0.87-1.13)
[2021-02-11] MEDS ORDERED: ASPIRIN EC 325 MG TAB PO ONE (06:00)
[2021-02-11] MEDS: FUROSEMIDE 20 MG/2 ML INJ IV SCH (06:04)
[2021-02-11 06:13] LABS: Calcium 8.6 mg/dL (8.4-10.2)
[2021-02-11] MEDS ORDERED: HEPARIN 10,000 UNITS/10 ML VIAL ONE (08:40)
[2021-02-11] MEDS ORDERED: HEPARIN/NS 5000 UNIT/500ML 1,000 ML IR ONE (08:40)
[2021-02-11] MEDS ORDERED: fentaNYL 100 MCG/2 ML INJ ONE (08:40)
[2021-02-11] MEDS ORDERED: MIDAZOLAM 2 MG/2 ML INJ ONE (08:40)
[2021-02-11] MEDS ORDERED: VERAPAMIL 5 MG/2 ML INJ ONE (08:41)
[2021-02-11] MEDS ORDERED: LIDOCAINE (2%) 20 MG/1 ML VIAL 20 ML MDV INFILTRATI ONE (08:41)
[2021-02-11] MEDS ORDERED: NITROGLYCERIN SYRINGE 3 ML ONE (08:41)
[2021-02-11] MEDS: ASPIRIN EC 81 MG TAB PO SCH ×2 (08:55→10:14)
[2021-02-11] MEDS ORDERED: SODIUM CHLORIDE 0.9% 500 ML 500 ML IV SCH (09:00)
[2021-02-11 09:13] VITALS: BP 116/80
[2021-02-11] MEDS ORDERED: NITROGLYCERIN 600 MCG/3 ML SYRINGE ART-SHEATH ONE (09:26)
--- NOTE | 2021-02-11 09:55 | Cardiac Catherization Report ---
REFERRING PHYSICIAN: Hospitalist Service. INDICATION FOR PROCEDURE: The patient was brought to catheterization lab in a postabsorptive state. Robert's test in right hand was normal. A 2 mL of 2% lidocaine used to anesthetize the right wrist. A standard 6-Arabic hydrophilic sheath used to cannulate the right radial artery via modified Seldinger technique. All exchanges performed to exchange a J-tip guidewire. JL3.5 catheter used to engage the left main. No dampening or ventricularization. Cineangiography performed in multiple projections. JR4 catheter used to cross the aortic valve under fluoroscopic guidance. Left ventriculography performed in 30 LAWRENCE and 30 ARMENIAN projections via hand injections, catheter flushed. Manual pullback performed with continuous pressure monitoring. Catheter used to engage the right coronary. No dampening or ventricularization. Cineangiography performed in all projections. JR4 catheter used to cross the aortic valve under fluoroscopic guidance. Left ventriculography performed in 30 LAWRENCE and 30 ARMENIAN projections via hand injections, catheter flushed. Manual pullback performed with continuous pressure monitoring. Catheter used to engage the right coronary. No dampening or ventricularization. Cineangiography performed in all projections. Next, catheter removed from the body of wire, sheath removed. Manual pressure used to achieve hemostasis. I directly supervised the administration of moderate sedation from 9:10 a.m. to 9:40 a.m. with fentanyl and Versed. No immediate complications identified. DATA: Aortic pressure is 120/70. Aortic pressure is 120, LVP of 25 mmHg. Left ventriculography reveals severe global left ventricular hypokinesis, estimated ejection fraction of 20-25% without evidence of aortic stenosis. The patient remained in normal sinus rhythm throughout the procedure. CORONARY ANATOMY: 1. The right dominant system. Right coronary is a moderate-sized vessel, courses AV groove, distally bifurcates into posterior and posterolateral branch. No discrete stenosis noted. 2. Left main without significant disease, bifurcates left anterior descending and left circumflex. Left circumflex, moderate-sized vessel, courses AV groove. No significant disease. LAD is a moderate-sized vessel, courses anterior intergroove, wraps around the apex, no significant disease in the diagonal or LAD system. CONCLUSIONS: 1. No angiographic evidence of significant epicardial coronary disease in this right dominant system. 2. Mild to moderately dilated left ventricle with severe global left ventricular hypokinesis, estimated ejection fraction of 20-25%. 3. No evidence of aortic stenosis. 4. Mildly elevated LVEDP. 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 The patient is clinically stable. Continue beta blockade, MARGARITA inhibition, LifeVest, risk factor modification, low salt diet. Results procedure explained in length to the patient and her son, Fabio, at [phone]. All questions were addressed. Standard radial care. The patient remains stable, consider discharge with LifeVest later today. JOB# [id number] SBM/NTS
[2021-02-11] MEDS: LOSARTAN 50 MG TAB PO SCH (10:14)
[2021-02-11] MEDS: carvediloL 12.5 MG TAB PO SCH (10:14)
[2021-02-11] MEDS: POTASSIUM CHLORIDE ER 20 MEQ TAB PO SCH (10:14)
--- NOTE | 2021-02-11 10:19 | Progress Note ---
Assessment and Plan 66yo AAF: [facility] via RRA this am: 1. No sig CAD 2. Severe LV global hypokinesis (Ef 20-25%) 3. No 4. Mildly elevated LVeDP These findings are suggestive of a relatively well-compensated DNICM: * cont arb/coreg/lasix * unable to uptitrate arb or coreg due to soft bps * lifevest in place * discussed findings and results w/ pt and son (via telephone) at length * lifestyle and diet changes including Na restriction * may dc this afternoon if RRA stable * f/u w us in office in 2-4 weeks - Patient Problems (1) Acute HFrEF (heart failure with reduced ejection fraction) Current Visit: Yes Status: Acute (2) CHF exacerbation Current Visit: Yes Status: Acute (3) Left bundle branch block (LBBB) Current Visit: Yes Status: Acute (4) MARGARITA-inhibitor cough Current Visit: Yes Status: Chronic (5) Cardiomyopathy Current Visit: Yes Status: Chronic (6) Hypertension Current Visit: Yes Status: Chronic Qualifiers: Hypertension type: essential hypertension Qualified Code(s): I10 - Essential (primary) hypertension Subjective Principal diagnosis: A/C HFrEF, CMP (EF 10-15%), NSVT Interval history: no issues overnight Objective Vital Signs Temp Pulse Resp BP Pulse Ox 02/11/21 07:57 97.7 F 83 18 116/80 95 02/11/21 03:41 97.5 F L 79 18 98/54 99 02/11/21 02:05 83 02/10/21 23:34 98.0 F 88 18 108/63 98 02/10/21 22:06 95 H 111/71 02/10/21 19:30 98.3 F 95 H 18 111/71 98 02/10/21 14:59 98.0 F 18 102/50 02/10/21 13:05 97 02/10/21 10:54 97.6 F 96 H 18 112/65 94 - Physical Examination General: No Apparent Distress HEENT: Positive: EOMI, Normocephaly, Mucus Membranes Moist Neck: Positive: neck supple, trachea midline. Negative: JVD/HJR Neuro: Positive: Grossly Intact Abdomen: Positive: Soft. Negative: Tender Skin: Negative: Rash Musculoskeletal: No Pain Extremities: Present: upper extr. pulses, lower extr. pulses. Absent: edema - Labs and Meds Coagulation 02/11/21 Range/Units 04:27 PT 14.8 (12.2-14.9) Sec. INR 1.18 H (0.87-1.13) CBC 02/11/21 Range/Units 04:27 WBC 6.4 (4.5-11.0) K/mm3 RBC 4.36 (3.65-5.03) M/mm3 Hgb 12.7 (10.1-14.3) gm/dl Hct 38.9 (30.3-42.9) % Plt Count 142 (140-440) K/mm3 Lymph # (Auto) 3.0 (1.2-5.4) K/mm3 Crockett # (Auto) 0.6 (0.0-0.8) K/mm3 Eos # (Auto) 0.2 (0.0-0.4) K/mm3 Baso # (Auto) 0.0 (0.0-0.1) K/mm3 Comprehensive Metabolic Panel 02/11/21 Range/Units 04:27 Sodium 140 (137-145) mmol/L Potassium 4.7 (3.6-5.0) mmol/L Chloride 103.6 (98-107) mmol/L Carbon Dioxide 28 (22-30) mmol/L BUN 12 (7-17) mg/dL Creatinine 1.1 (0.6-1.2) mg/dL Glucose 84 (65-100) mg/dL Calcium 8.6 (8.4-10.2) mg/dL - Imaging and Cardiology EKG: report reviewed, image reviewed Echo: report reviewed (02/06/2021: EF 15-20%; LV moderately dilated w/severe global hypokinesis and mild diastolic dysfxn; RV mildly dilated; LA & RA mildly dilated; moderate MR) Cardiac cath: pending - EKG Sinus rhythms and dysrhythmias: sinus tachycardia AV and intraventricular conduction: left bundle branch block
[2021-02-11] MEDS ORDERED: HYDROcodone/ACETAMINOPHEN 5-325 MG TAB PO PRN (11:22)
[2021-02-11] MEDS ORDERED: traMADol 50 MG TAB PO PRN (11:22)
--- NOTE | 2021-02-11 11:47 | Discharge Summary ---
Providers - Providers Date of Admission: 02/08/21 15:00 Date of discharge: 02/11/21 Attending physician: NALLELY QUILES 02/06/21 14:19 Consult to Cardiology [CONS] Routine Consulting Provider: CHUY AGUILLON Reason For Exam: CHF 02/11/21 11:22 Consult to Cardiac Rehabilitation [CONS] Routine Reason For Exam: Cardiac Rehab Evaluation Primary care physician: AJAY ROMERO MD Hospitalization Condition: Fair Hospital course: This is a 66-year-old female with a history of hypertension presented to the hospital with complaining of difficulty breathing and bilateral lower extremity swelling. Patient was admitted to telemetry floor with CHF protocol, placed on scheduled iv diuretics. Monitored with serial CE, EKG. Cardiology consulted, 2d echo obtained which showed EF 15 to 20%. Provided cardiac diet, daily weights, monitored in's and O's. Patient had cardiac cath today which showed no major obstructive coronary artery disease. Patient noted to have episode of 8 beat polymorphic Vtach noted overnight Cardiac Defibrillator is indicated in setting of severe cardiomyopathy and nonsustained VT. Lifevest discussed with pt who is agreeable to lifevest placement at this time and will plan to evaluate for AICD candidacy as outpatient. Lifevest ordered. Patients symptom improved with medical management. Patient was then discharged home in stable condition with outpt f/u. Daily clinical course: 02/07/21; patient admitted for CHF exacerbation. Continue CHF protocol with IV diuresis, daily weight, monitoring ins and O's. Continue aspirin and statin. 2D echo today showed EF 15 to 20%. Cardiology consulted and recommended to optimize medical management. Continue to follow clinically. Need inpatient care. 02/08/21: Patient becomes hypoxic on ambulation, continue IV diuresis. Monitor ins and O's. Plan to have stress test/cardiac cath on Thursday. Continue supportive care. Noted V. tach on monitor overnight, LifeVest ordered 02/09/21; cont diuresis,Monitor ins and O's. Plan to have stress test/cardiac cath on Thursday. 02/10/2021: Continue continue current management IV diuresis, plan for cardiac cath, monitor ins and O's daily weight, n.p.o. after midnight 02/11: Cardiac cath revealed no significant coronary artery disease. Patient will be discharged home on current regiment and outpt follow-up Disposition: DC-[id number] TO HOME OR SELFCARE Final Discharge Diagnosis (Prints w/discharge instructions): (1) Acute HFrEF (heart failure with reduced ejection fraction). Current Visit: Yes Status: Acute. (2) CHF exacerbation. Current Visit: Yes Status: Acute. (3) Left bundle branch block (LBBB). Current Visit: Yes Status: Acute. (4) MARGARITA- inhibitor cough. Current Visit: Yes Status: Chronic. (5) Cardiomyopathy. Current Visit: Yes Status: Chronic. (6) Hypertension. Current Visit: Yes Status: Chronic. Qualifiers: Hypertension type: essential hypertension Qualified Code(s): I10 - Essential (primary) hypertension. (7) NSVT, acute Time spent for discharge: 34 minutes Core Measure Documentation - Palliative Care Palliative Care/ Comfort Measures: Not Applicable - Core Measures Any of the following diagnoses?: none Exam - Physical Exam Narrative exam: GENERAL: well-developed elderly -[place] female lying on bed appeared to be in no discomfort. HEENT: Normocephalic. Atraumatic. No conjunctival congestion or icterus. Patient has moist mucous membranes. NECK: Supple. Trachea midline. CHEST/LUNGS: Few crackles auscultated bilaterally, breathing nonlabored. No wheezes or rhonchi. HEART/CARDIOVASCULAR: Regular in rate and rhythm. S1 and S2 positive. ABDOMEN: Abdomen is soft, nontender. Patient has normal bowel sounds. SKIN: There is no rash. Warm and dry. NEURO: No focal motor deficit. Follows command. MUSCULOSKELETAL: No joint effusion or tenderness. EXTRIMITY: No edema, no cyanosis or clubbing. PSYCH: Cooperative. - Constitutional Vitals: Temp Pulse Resp BP Pulse Ox 97.7 F 83 18 116/80 95 02/11/21 07:57 02/11/21 07:57 02/11/21 07:57 02/11/21 07:57 02/11/21 07:57 Plan Activity: advance as tolerated Weight Bearing Status: Weight Bear as Tolerated Diet: low fat, low salt Special Instructions: record daily BP diary Additional Instructions: Please consume low-salt low-fat diet. Fluid restriction to 1.2 L/day. Monitor daily weight. Follow-up with mold presser in 2 weeks to 4 weeks: Follow up at [facility] with Dr. Urmila Sawn on 03/08/2021 @ 2:00PM. Follow up with: AJAY ROMERO MD [Primary Care Provider] - 7 Days Prescriptions: Potassium Chloride [K-Dur] 10 meq PO QDAY #30 tablet Furosemide [Lasix TAB] 20 mg PO QDAY #30 tablet
--- NOTE | 2021-02-11 14:15 | Event Note ---
Date: 02/11/21 Follow up in our [place] office with Dr. Urmila Swan on 03/08/2021 @ 2:00PM. Joanna MILLER NP / DR. Urmila SWAN
[2021-02-12] MEDS ORDERED: FUROSEMIDE 20 MG TAB PO SCH (10:00)
--- NOTE | 2021-02-14 13:59 | Electrocardiograph Report ---
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
== END 2021-02-11 16:37 | disposition home or self-care (01) | DRG 287 ==
LOC: ED 09:52 → 4A 15:03 → OBSVTOIN 02-08 15:00
PROVIDERS: ADMIT Internal Medicine; ATTEND Internal Medicine
PROC: 4A023N7 Measurement of Cardiac Sampling and Pressure, Left Heart, Percutaneous Approach (ICD-10-PCS; principal; 2021-02-11)
PROC: B2111ZZ Fluoroscopy of Multiple Coronary Arteries using Low Osmolar Contrast (ICD-10-PCS; 2021-02-11)
PROC: B2151ZZ Fluoroscopy of Left Heart using Low Osmolar Contrast (ICD-10-PCS; 2021-02-11)
DX: I11.0 Hypertensive heart disease with heart failure (principal); I50.23 Acute on chronic systolic (congestive) heart failure; I42.9 Cardiomyopathy, unspecified; I44.7 Left bundle-branch block, unspecified; Z82.49 Family history of ischemic heart disease and other diseases of the circulatory system; Z79.899 Other long term (current) drug therapy; Z90.49 Acquired absence of other specified parts of digestive tract
CPT/HCPCS: 36415; 71046; 80048; 80053; 81001; 83690; 83735; 83880; 84439; 84443; 84484; 85025; 85610; 93005; 93306; 93458; 96374; 96375; G0378; C1894; J1644; J1940; J2250; J3010; J3480; J7040; Q9967